=== PATIENT | male | born 1995 | race Caucasian/White ===

== ENCOUNTER 2025-08-16 23:11 | Emergency (ER) | payer OTHER, SELFPAY ==
[2025-08-17 00:01] VITALS: BP 152/105; BMI 21.6
[2025-08-17 00:41] LABS: Hematocrit 39.4 % (39.0-52.0); Hemoglobin 13.8 g/dL (13.0-18.0); Mean Corp Hgb Conc. 35.0 g/dL (33.0-37.0); Mean Corpuscular Volume 86.2 fL (80.0-94.0); Nucleated Red Blood Cells % 0 % (-); Platelet Count 399 10^3/uL (130-400); Red Cell Dist. Width 13.0 % (11.5-14.5)
[2025-08-17 00:51] LABS: ALT (SGPT) 42 U/L (0-50); AST (SGOT) 51 U/L (17-59); Albumin 5.0 g/dl (3.5-5.0); Alkaline Phosphatase 69 U/L (38-126); Blood Urea Nitrogen 24 mg/dl (9-20); Calcium 9.8 mg/dl (8.4-10.2); Carbon Dioxide 26 mmol/L (22-30); Chloride 107 mmol/L (98-107); Estimated Creatinine Clearance > 125 ml/min; Glucose 84 mg/dl (70-99); Potassium 4.6 mmol/L (3.5-5.1); Sodium 141 mmol/L (135-145); Total Protein 7.6 g/dl (6.3-8.2); eGFR > 60.00
--- NOTE | 2025-08-17 01:49 | ED.GENMED ---
History of Present Illness
General
Chief Complaint: Crisis Evaluation
Source: patient, police, previous hospital records (ED visit January 2022 as well as July 2022 when he presented with alcohol intoxication) and other ([facility] crisis counselor)
Exam Limitations: none
Time Seen by Provider: 08/16/25 23:15
Nursing documentation reviewed up to this point in time: agreed with
History of Present Illness
History of Present Illness:
HISTORY OF PRESENT ILLNESS
The patient is a 29-year-old male brought in by the police after an incident at a local [employer]. He consumed three shots of vodka and reports drinking alcohol episodically, typically choosing beer. The patient described feelings of being harassed
and filmed while in public, mentioning concerns of people putting tobacco and marijuana in pipes. There is a strong family history of suicide, including his father, grandfather, and brother. He denies current suicidal ideation but referenced
existential thoughts about '[place],' a notion of not caring about consequences. The patient is chronically maintained on 1/2 tablet of sertraline (Zoloft). He mentions his father is a psychiatrist and has been worried for him.
Further information provided by [facility]. Patient was brought to the ED by local police after being dispatched to a local [employer] for a disturbance. The patient apparently had stopped the staff from exiting the store, the [employer] staff
feared for their safety. Patient then left the [employer], entered a bar and began arguing with the bouncer. Police officers attempted to take the patient home, the patient himself elected to walk down the street, while police officers followed,
the patient began running and ran right in front of a moving vehicle in a parking lot. It was at this time police officers feared for patient's safety and brought him to the ED and have filed a 302 psychiatric evaluation.
Upon review of records, patient has been evaluated in this ED in 2021 as well as 2020 for alcohol intoxication.
There is reported history of anxiety, ADHD. Had previously been prescribed Adderall but not recently.
No previous ED visits for acute psychiatric complaints.
He adamantly denies suicidal thoughts. He admits to frequent marijuana use, otherwise denies any other recreational drug use.
He admits to drinking vodka tonight, admits to occasional alcohol consumption but denies daily alcohol use.
Past History
Past History
ED Past Medical History: Psychiatric (Bipolar disorder, depression, ADHD)
ED Past Surgical History: Orthopedic
Social History
Tobacco: Non-smoker
Alcohol: Occasional
Drug: Marijuana
Personal: Single
Living: other
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
Family History
Family History: Unable to obtain
Phy Exam
Physical Exam
Physical Exam:
GENERAL: 29-year-old male appears his stated age, awake and alert, somewhat anxious, intermittently pacing about exam room. Speech is mildly pressured with mildly scattered thought processes but able to follow commands and answering questions
appropriately. Moderate alcohol like odor to breath.
EYE: pupils equal and reactive. anicteric
NECK: Supple, nontender, no meningismus, no significant adenopathy.
ENT: posterior pharynx is clear, oral mucosa is moist. No rhinorrhea.
CARDIAC: Regular rate and rhythm. no murmur.
LUNGS: Clear breath sounds bilaterally, no acute respiratory distress, no wheezes/rales/rhonchi
ABDOMEN: Soft, nondistended, without focal tenderness
NEUROLOGICAL: Alert and oriented x3, no focal neuro deficits. Gait is mejia and steady.
SKIN: Warm and dry, normal color, skin intact. No rash.
MUSCULOSKELETAL: No C/C/E. peripheral pulses are full and equal b/l. No palpable tenderness.
PSYCH: Anxious, mildly restless. Paranoid thought processes. Denies suicidal thoughts or plan. Admits to alcohol consumption tonight.
Course
Orders/Labs/Results
Orders:
Orders
08/17/25 00:09
Alcohol Stat
Complete Blood Count/With Diff Stat
Comprehensive Metabolic Panel Stat
08/17/25 04:36
Urine Drug Abuse Screen Urgent
Date Specimen was Collected: 08/17/25
Time Specimen was Collected: 04:34
Abnormal Lab Results
08/17/25 08/17/25
00:09 04:36
WBC 11.4 H 10^3/uL
(4.8-10.8)
RBC 4.57 L 10^6/uL
(4.70-6.10)
Abs Immat Gran (auto) 0.1 H 10^3/uL
(0-0.05)
Absolute Neuts (auto) 7.6 H 10^3/uL
(1.4-6.5)
Absolute Monos (auto) 0.9 H 10^3/uL
(0.1-0.6)
Immature Gran % 0.6 H %
(0-0.5)
BUN 24 H mg/dl
(9-20)
U Marijuana (THC) Screen Positive H
(Negative)
08/17/25 00:09
08/17/25 00:09
Vital Signs
Initial and Last Documented VS:
Initial Vital Signs
Temp Pulse Resp BP Pulse Ox
97.1 F 95 19 152/105 97
08/17/25 00:01 08/17/25 00:01 08/17/25 00:01 08/17/25 00:01 08/17/25 00:01
Last Documented Vital Signs
Temp Pulse Resp BP Pulse Ox
97.1 F 95 19 152/105 97
08/17/25 00:01 08/17/25 00:01 08/17/25 00:01 08/17/25 00:01 08/17/25 02:02
MDM/Problems Addressed
Differential Diagnosis Includes:
DIFFERENTIAL DIAGNOSIS
The Differential Diagnosis includes, in no particular order and is not limited to:
- Acute Alcohol Intoxication
- Substance-Induced Mood Disorder
- Anxiety Disorder
- Schizophrenia or Psychotic Disorder
- Bipolar Disorder
- Post-Traumatic Stress Disorder
- Depression with Psychotic Features
- Substance Use Disorder
- Adjustment Disorder
- Dysthymia
MDM/Problems Addressed:
Acute agitation/erratic behavior, paranoid thoughts
Admits to alcohol consumption tonight. Concern for alcohol intoxication as cause for current behavior.
Will check labs including EtOH, UDS
Awaiting telepsychiatry evaluation.
Remains on one-to-one observation.
Thus far remains cooperative, has not required sedation Nor restraints.
Chronic conditions affecting care:
History of anxiety/depression. Questionable prior history of bipolar disorder.
Chronic marijuana use
Occasional alcohol consumption.
Chronic conditions affecting care: Psychiatric illness
*Pulse Oximetry
SaO2: 97
Oxygen Mode of Delivery: Room air
Patient hypoxic: no
*Critical Care Note
Total Time (30-74mins, 75-104mins- exclusive of procedures): Not Applicable
Update Note
Update Note:
Patient has been evaluated by telepsychiatrist who does not feel patient meets criteria for involuntary commitment
EtOH 161.
Awaiting UDS.
Plan is to continue to observe in the ED until sober.
If he remains anxious, paranoid will plan for in-house psychiatry evaluation in the AM. If anxiety/paranoia resolve as patient caren will discharge in the a.m.
ED Attending Note
-
Portions of this chart may have been created with voice recognition software.� Occasional wrong word or��sound alike� substitutions may have occurred due to the inherent limitations of voice recognition software.
Discharge Plan
Departure
Patient Disposition: Home (Routine Discharge)
Date of Disposition: 08/17/25
Time of Disposition: 07:26
Patient with high blood pressure during this ER visit?: Yes
Condition: Good
Covid-19: Not Applicable
Discharge Problem:
Alcohol intoxication
Instructions: Alcohol intoxication - ED (DC), BLOOD PRESSURE
Prescriptions:
No Action
sertraline 50 MG tablet
50 mg PO DAILY
Referrals:
NONE,* [Family Provider, Internal Medicine]
Activity Restrictions/Additional Instructions:
Return if you feel unsafe or thoughts of hurting yourself.
Interventions
Interventions:
*Risk Screen - Suicide Last Done: 08/17/25 00:01
*General Assessment Last Done: 08/17/25 00:01
*Neglect/Abuse Screening Last Done: 08/17/25 00:01
*ED Influenza Vaccine History Last Done: 08/17/25 00:01
[facility] Fall Risk Assessment Tool Last Done: 08/16/25 23:11
ED-Psychological Assessment Last Done: 08/17/25 00:01
Discharge Date and Time
Print Language: MONGOLIAN
[2025-08-17 07:15] VITALS: BP 131/85
[2025-08-17 07:34] VITALS: BP 131/85
== END 2025-08-17 07:46 | disposition home or self-care (01) ==
LOC: EMR 23:11
PROVIDERS: Emergency Medicine; EMERGENCY PHYSICIAN Emergency Medicine
DX: F10.129 Alcohol abuse with intoxication, unspecified (principal); F12.90 Cannabis use, unspecified, uncomplicated; F31.9 Bipolar disorder, unspecified; Z65.3 Problems related to other legal circumstances; Z81.8 Family history of other mental and behavioral disorders
CPT/HCPCS: 99283; 80053; 80306; 82077; 85025

== ENCOUNTER 2025-09-06 22:11 | Emergency (ER) | payer OTHER, SELFPAY ==
[2025-09-06 22:13] VITALS: BP 157/99
--- NOTE | 2025-09-06 22:35 | ED.GENMED ---
History of Present Illness
General
Chief Complaint: Crisis Evaluation
Source: patient
Time Seen by Provider: 09/06/25 22:28
History of Present Illness
History of Present Illness:
Patient brought to the emergency room by police after being kicked out of his house essentially. Patient evidently had some sort of argument and confrontation with his parents. They told him he had to get out of the house. Police were called to
facilitate getting him out of the house. Patient denies any suicidal, homicidal ideations. He denies hearing any voices. He denies any history of significant mental health disorder that we has been prescribed Adderall for ADHD and sertraline for
anxiety in the past. He is not taking them any longer. Patient denies any alcohol or drug use today. Patient was told by police that he should talk to crisis. He offers no specific complaints.
Past History
Past History
ED Past Medical History: Psychiatric (Bipolar disorder, depression, ADHD)
ED Past Surgical History: Orthopedic
Social History
Tobacco: Non-smoker
Alcohol: Occasional
Drug: Marijuana
Personal: Single
Living: other
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
Family History
Family History: Unable to obtain
Phy Exam
Physical Exam
Physical Exam:
General: Awake, Alert, Oriented X3. No acute distress.
Vitals: unremarkable
Head: Atraumatic
Eyes: Pupils equal, EOMI
Throat: Airway intacts
Neck: Trachea midline
Neuro: Nonfocal
Skin: Warm, dry, no rash
Extremities: pulses equal b/l, no edema
Course
Orders/Labs/Results
Orders:
Orders
09/06/25 22:31
Crisis Consult Urgent
Reason for Consult: brought in by police
Vital Signs
Initial and Last Documented VS:
Initial Vital Signs
Temp Pulse Resp BP Pulse Ox
98.2 F 93 20 157/99 99
09/06/25 22:13 09/06/25 22:13 09/06/25 22:13 09/06/25 22:13 09/06/25 22:13
Last Documented Vital Signs
Temp Pulse Resp BP Pulse Ox
98.2 F 91 18 142/89 100
09/06/25 22:13 09/06/25 23:47 09/06/25 23:47 09/06/25 23:47 09/06/25 23:47
MDM/Problems Addressed
Differential Diagnosis Includes:
Depression, anxiety, substance abuse
MDM/Problems Addressed:
Patient brought to the emergency room by police. Patient denies any suicidal or homicidal ideation. He does not appear intoxicated. Police did not file a 302 or stick around to provide any clinical context. Will have crisis speak to the patient.
From an emergency room standpoint there is no medical issue that requires intervention. Disposition per crisis
*Pulse Oximetry
SaO2: 99
Oxygen Mode of Delivery: Room air
Patient hypoxic: no
*Critical Care Note
Total Time (30-74mins, 75-104mins- exclusive of procedures): Not Applicable
ED Attending Note
-
Portions of this chart may have been created with voice recognition software.� Occasional wrong word or��sound alike� substitutions may have occurred due to the inherent limitations of voice recognition software.
Discharge Plan
Departure
Patient Disposition: Home (Routine Discharge)
Date of Disposition: 09/06/25
Time of Disposition: 23:34
Patient with high blood pressure during this ER visit?: No
Condition: Good
Discharge Problem:
Anxiety
Instructions: Anxiety, Adult (DC)
Prescriptions:
No Action
sertraline 50 MG tablet
50 mg PO DAILY
Referrals:
Hussein Cabral DO [Family Provider, Family Practice]
Interventions
Interventions:
*General Assessment Last Done: 09/06/25 22:13
*Neglect/Abuse Screening Last Done: 09/06/25 22:27
*ED COVID-19 Vaccine History Last Done: 09/06/25 22:26
*ED Influenza Vaccine History Last Done: 09/06/25 22:26
[facility] Fall Risk Assessment Tool Last Done: 09/06/25 22:27
*Risk Screen - Suicide (C-SSRS) Last Done: 09/06/25 22:15
*Nursing Disposition Last Done: 09/06/25 23:47
ED-Psychological Assessment Last Done: 09/06/25 22:28
Discharge Date and Time
Discharge Date/Time: 09/06/25 23:50
Print Language: MONTENEGRIN
[2025-09-06 23:47] VITALS: BP 142/89
== END 2025-09-06 23:50 | disposition home or self-care (01) ==
LOC: EMR 22:11
PROVIDERS: EMERGENCY PHYSICIAN Emergency Medicine; FAMILY PHYSICIAN Family Medicine
DX: F41.9 Anxiety disorder, unspecified (principal); F32.A Depression, unspecified; F31.9 Bipolar disorder, unspecified; F90.9 Attention-deficit hyperactivity disorder, unspecified type; Z65.3 Problems related to other legal circumstances
CPT/HCPCS: 99282

== ENCOUNTER 2025-09-11 07:49 | Emergency (ER) | payer OTHER, SELFPAY ==
[2025-09-11 07:58] VITALS: BP 101/60
[2025-09-11 08:30] LABS: Hematocrit 39.6 % (39.0-52.0); Hemoglobin 13.5 g/dL (13.0-18.0); Mean Corp Hgb Conc. 34.1 g/dL (33.0-37.0); Mean Corpuscular Volume 88.0 fL (80.0-94.0); Nucleated Red Blood Cells % 0 % (-); Platelet Count 283 10^3/uL (130-400); Red Cell Dist. Width 13.3 % (11.5-14.5)
[2025-09-11 09:12] LABS: ALT (SGPT) 62 U/L (0-50); AST (SGOT) 52 U/L (17-59); Albumin 4.5 g/dl (3.5-5.0); Alkaline Phosphatase 52 U/L (38-126); Blood Urea Nitrogen 13 mg/dl (9-20); Calcium 9.2 mg/dl (8.4-10.2); Carbon Dioxide 26 mmol/L (22-30); Chloride 103 mmol/L (98-107); Glucose 84 mg/dl (70-99); Potassium 5.0 mmol/L (3.5-5.1); Sodium 137 mmol/L (135-145); Total Protein 6.9 g/dl (6.3-8.2); eGFR > 60.00
[2025-09-11 09:50] VITALS: BP 126/78
== END 2025-09-11 09:29 ==
LOC: EMR 07:49
PROVIDERS: Student in an Organized Health Care Education/Training Program
DX: Z53.21 Procedure and treatment not carried out due to patient leaving prior to being seen by health care provider (principal)
CPT/HCPCS: 80053; 85025